=== PATIENT | female | born 1970 | race Caucasian/White ===

== ENCOUNTER 2017-02-26 17:20 | Inpatient (IN) | payer BC ==
[~2017-02-26] VITALS: Ht 160 cm; Wt 83.2 kg
[~2017-02-26 17:20] MED LIST: ALBU0.63 NEB; ALBU18HF INH; ALLO100T30 PO; ALPR0.5T10 PO; AMLO1TAB13 PO; AMOX1TAB64 PO; ASPI-496 PO; CARV3.1212 PO; DOXY100C15 PO; ESOM40CA PO; FLUC200T4 PO; LEVO750T26 PO; MELO-184 PO; METR500T PO; ONDA4TAB7 PO; POTA10TA PO; RIVA1PAT23 TD; SIMV5TAB5 PO; SUMA100T3 PO; TRAM50TA2 PO
[2017-02-26] MEDS ORDERED: FLUO20CA8 PO (17:48)
[2017-02-26] MEDS ORDERED: ALPR1TAB6 PO (17:48)
[2017-02-26] MEDS ORDERED: ESOM40CA PO (17:48)
[2017-02-26] MEDS ORDERED: TOPI25TA32 PO (17:48)
[2017-02-26] MEDS ORDERED: MONT10TA6 PO (17:50)
[2017-02-26] MEDS ORDERED: FLUT1DIS3 INH (17:50)
[2017-02-26] MEDS ORDERED: SODIUM CHLORIDE FLUSH 10ML SYR IVF ONE (18:30)
[2017-02-26] MEDS ORDERED: DIPHENHYDRAMINE 50 MG/ML, 1ML ONE (18:48)
[2017-02-26] MEDS ORDERED: METOCLOPRAMIDE 5 MG/ML, 2ML ONE (18:48)
[2017-02-26 18:52] LABS: BLOOD UREA NITROGEN 12 mg/dL (7-18)
[2017-02-26 18:55] LABS: ASPARTATE AMINO TRANSFERASE 19 U/L (15-37)
[2017-02-26] MEDS ORDERED: METOCLOPRAMIDE 5 MG/ML, 2ML IVPush ONE (19:00)
[2017-02-26] MEDS ORDERED: DIPHENHYDRAMINE 50 MG/ML, 1ML IVPush ONE (19:00)
[2017-02-26] MEDS ORDERED: SODIUM CHLORIDE FLUSH 10ML SYR IVF PRN (20:30)
[2017-02-26] MEDS ORDERED: TOPIRAMATE 25 MG TABLET PO SCH (21:00)
[2017-02-26] MEDS ORDERED: MONTELUKAST 10 MG TABLET PO SCH (21:00)
[2017-02-26] MEDS ORDERED: ONDANSETRON ODT 4 MG PO PRN (21:00)
[2017-02-26] MEDS ORDERED: ACETAMINOPHEN 325 MG TABLET PO PRN (21:00)
[2017-02-26 21:18] LABS: IS PT STATUS REG ER OR PRE ER? YES
[2017-02-26] MEDS: ALBUTEROL SULFATE 2.5 MG/3 ML NPPB SCH (21:30)
[2017-02-26] MEDS ORDERED: SUMATRIPTAN 50 MG TABLET PO ONE (22:30)
[2017-02-26] MEDS ORDERED: SUMATRIPTAN 50 MG TABLET PO PRN (22:31)
[2017-02-26] MEDS: FLUTICASONE/VILANTEROL 100-25MCG/INH INH SCH (23:00)
[2017-02-27] MEDS: ALPRazolam 1MG TABLET PO SCH ×3 (00:15→20:47)
[2017-02-27] MEDS: ENOXAPARIN 40 MG/0.4 ML SQ SCH ×2 (00:15→20:47)
[2017-02-27] MEDS: ALBUTEROL SULFATE 2.5 MG/3 ML NPPB SCH (01:30)
[2017-02-27 02:00] VITALS: BP 132/78
[2017-02-27 03:02] LABS: BLOOD UREA NITROGEN 10 mg/dL (7-18)
[2017-02-27 03:15] LABS: IS PT STATUS REG ER OR PRE ER? NO
[2017-02-27] MEDS: KETOROLAC 30 MG/1 ML IVPush PRN ×3 (04:13→20:47)
[2017-02-27 07:23] VITALS: BP 93/65
[2017-02-27] MEDS: FLUTICASONE/VILANTEROL 100-25MCG/INH INH SCH (08:20)
[2017-02-27] MEDS: PANTOPROZOLE 40MG TABLET PO SCH (08:21)
[2017-02-27] MEDS ORDERED: FLUOXETINE 20 MG CAPSULE PO SCH (09:00)
[2017-02-27] MEDS: FENOFIBRATE 145 MG TABLET PO SCH (13:40)
[2017-02-27 13:45] VITALS: BP 107/71
[2017-02-27] MEDS ORDERED: GADOBUTROL 10 MMOL/10 ML PFS ONE (14:48)
[2017-02-27] MEDS: ATORVASTATIN 40 MG TABLET PO SCH (20:47)
[2017-02-27] MEDS: MONTELUKAST 10 MG TABLET HOMEMEDPO SCH (20:48)
[2017-02-27 20:51] VITALS: BP 99/70
[2017-02-27] MEDS ORDERED: ALBUTEROL SULFATE 2.5 MG/3 ML NPPB PRN (21:30)
[2017-02-28 02:19] VITALS: BP 101/66
[2017-02-28 05:28] LABS: BLOOD UREA NITROGEN 9 mg/dL (7-18)
[2017-02-28 07:35] VITALS: BP 101/66
[2017-02-28] MEDS: PANTOPROZOLE 40MG TABLET PO SCH (08:00)
[2017-02-28] MEDS: KETOROLAC 30 MG/1 ML IVPush PRN ×2 (08:01→20:39)
[2017-02-28] MEDS: FLUTICASONE/VILANTEROL 100-25MCG/INH INH SCH (08:01)
[2017-02-28] MEDS: ALPRazolam 1MG TABLET PO SCH ×2 (08:02→20:39)
[2017-02-28] MEDS: FENOFIBRATE 145 MG TABLET PO SCH (08:02)
[2017-02-28] MEDS: FLUOXETINE 20 MG CAPSULE PO SCH (08:02)
[2017-02-28 12:31] VITALS: BP 102/67
[2017-02-28 19:02] VITALS: BP 112/66
[2017-02-28] MEDS: MONTELUKAST 10 MG TABLET HOMEMEDPO SCH (20:38)
[2017-02-28] MEDS: ATORVASTATIN 40 MG TABLET PO SCH (20:40)
[2017-02-28] MEDS: ENOXAPARIN 40 MG/0.4 ML SQ SCH (20:40)
[2017-03-01] VITALS: BP 100/70
[2017-03-01 01:33] VITALS: BP 97/64
[2017-03-01 04:00] VITALS: BP 97/63
[2017-03-01] MEDS ORDERED: PNEUMOCOCCAL 23 VACCINE IM-VACC ONE (04:30)
[2017-03-01 07:00] VITALS: BP 99/65
[2017-03-01] MEDS: KETOROLAC 30 MG/1 ML IVPush PRN (08:36)
[2017-03-01] MEDS: FLUTICASONE/VILANTEROL 100-25MCG/INH INH SCH (08:36)
[2017-03-01] MEDS: FENOFIBRATE 145 MG TABLET PO SCH (08:36)
[2017-03-01] MEDS: PANTOPROZOLE 40MG TABLET PO SCH (08:36)
[2017-03-01] MEDS: FLUOXETINE 20 MG CAPSULE PO SCH (08:36)
[2017-03-01] MEDS: ALPRazolam 1MG TABLET PO SCH (08:37)
[2017-03-01] MEDS ORDERED: FENO145T13 PO (09:12)
[2017-03-01] MEDS ORDERED: FLUO20CA8 PO (09:12)
== END 2017-03-01 11:55 | disposition home or self-care (01) | DRG 92 ==
LOC: ED 20:35 → EDIP 20:50 → 4EST 22:00
PROVIDERS: ADMIT Internal Medicine; ATTEND Internal Medicine
DX: R20.0 Anesthesia of skin (principal); E87.1 Hypo-osmolality and hyponatremia; R47.81 Slurred speech; H53.8 Other visual disturbances; E78.1 Pure hyperglyceridemia; F32.9 Major depressive disorder, single episode, unspecified; G43.909 Migraine, unspecified, not intractable, without status migrainosus; K21.9 Gastro-esophageal reflux disease without esophagitis; K22.70 Barrett's esophagus without dysplasia; J45.909 Unspecified asthma, uncomplicated; F41.9 Anxiety disorder, unspecified; F43.10 Post-traumatic stress disorder, unspecified; Z86.14 Personal history of Methicillin resistant Staphylococcus aureus infection; Z98.1 Arthrodesis status; Z90.710 Acquired absence of both cervix and uterus; Z90.49 Acquired absence of other specified parts of digestive tract; Z88.5 Allergy status to narcotic agent; Z88.8 Allergy status to other drugs, medicaments and biological substances
CPT/HCPCS: 36415; 70450; 70544; 70549; 70553; 80048; 80053; 80061; 83735; 84484; 85025; 85610; 85730; 87324; 90732; 93005; 96374; 96375; A9585; J1650; J1885; J1200; J2765

== ENCOUNTER 2017-07-11 09:31 | Emergency (ER) | payer BC ==
[~2017-07-11] VITALS: Ht 160 cm; Wt 75.8 kg
[~2017-07-11 09:31] MED LIST changes: +ALPR1TAB6 PO; +FENO145T13 PO; +FLUO20CA8 PO; +FLUT1DIS3 INH; -MELO-184 PO; +MELO15TA24 PO; +MONT10TA6 PO; +TOPI25TA32 PO
[2017-07-11 10:15] LABS: HEMATOCRIT 44.6 % (34.6-47.8); HEMOGLOBIN 15.1 g/dL (11.7-16.4); WHITE BLOOD COUNT 8.4 x10^3/uL (3.4-10)
[2017-07-11 10:26] LABS: BLOOD UREA NITROGEN 10 mg/dL (7-18)
[2017-07-11 10:30] LABS: ASPARTATE AMINO TRANSFERASE 11 U/L (15-37)
[2017-07-11 10:46] LABS: HCG UR OBC PASS
[2017-07-11] MEDS ORDERED: SODIUM CHLORIDE FLUSH 10ML SYR IVF ONE (11:30)
[2017-07-11] MEDS ORDERED: ONDANSETRON 2MG/ML, 2ML IVPush ONE (11:30)
[2017-07-11] MEDS ORDERED: ONDANSETRON 2MG/ML, 2ML ONE (11:31)
[2017-07-11] MEDS ORDERED: OMNIPAQUE 350 MG/ML, 100ML BOTTLE ONE (12:30)
[2017-07-11 13:03] VITALS: BP 114/73
== END 2017-07-11 13:07 | disposition home or self-care (01) ==
LOC: ED 10:06
DX: S39.012A Strain of muscle, fascia and tendon of lower back, initial encounter (principal); R10.33 Periumbilical pain; R10.31 Right lower quadrant pain; G89.29 Other chronic pain; F43.10 Post-traumatic stress disorder, unspecified; X58.XXXA Exposure to other specified factors, initial encounter; Y93.89 Activity, other specified; Y92.89 Other specified places as the place of occurrence of the external cause; Y99.8 Other external cause status
CPT/HCPCS: 36415; 74177; 80053; 81003; 81025; 83690; 85025; 96374; 99285; J2405; Q9967

== ENCOUNTER 2017-10-08 15:58 | Emergency (ER) | payer BC ==
[~2017-10-08] VITALS: Ht 160 cm; Wt 76.2 kg
[2017-10-08] MEDS ORDERED: ALPR0.5T6 PO (16:47)
[2017-10-08] MEDS ORDERED: NORT10CA PO (16:47)
[2017-10-08] MEDS ORDERED: BUSP10TA PO (16:47)
[2017-10-08] MEDS ORDERED: PANT40TA5 PO (16:47)
[2017-10-08] MEDS ORDERED: FENO145T13 PO (16:47)
[2017-10-08] MEDS ORDERED: MONT10TA9 PO (16:47)
[2017-10-08] MEDS ORDERED: SODIUM CHLORIDE 0.9% 1,000 ML IV ONE (16:57)
[2017-10-08] MEDS ORDERED: methylPREDNISolone SOD SUCC 125 MG/2 ML IVP ONE (17:00)
[2017-10-08] MEDS ORDERED: SODIUM CHLORIDE FLUSH 10ML SYR IVF ONE (17:00)
[2017-10-08] MEDS ORDERED: SODIUM CHLORIDE 0.9% 1,000ML IVBOLUS ONE (17:00)
[2017-10-08] MEDS ORDERED: methylPREDNISolone SOD SUCC 125 MG/2 ML ONE (17:17)
[2017-10-08 17:18] VITALS: BP 133/89
[2017-10-08 17:30] LABS: RAPID INFLUENZA A POSITIVE (Negative); RAPID INFLUENZA B Negative (Negative)
[2017-10-08 17:33] LABS: HEMATOCRIT 41.8 % (34.6-47.8); WHITE BLOOD COUNT 5.3 x10^3/uL (3.4-10)
[2017-10-08 17:41] LABS: ASPARTATE AMINO TRANSFERASE 15 U/L (15-37); BLOOD UREA NITROGEN 7 mg/dL (7-18)
== END 2017-10-08 18:26 | disposition home or self-care (01) ==
LOC: ED 18:00
DX: J09.X2 Influenza due to identified novel influenza A virus with other respiratory manifestations (principal); F43.10 Post-traumatic stress disorder, unspecified; K22.2 Esophageal obstruction; G56.00 Carpal tunnel syndrome, unspecified upper limb; Z90.49 Acquired absence of other specified parts of digestive tract; Z86.73 Personal history of transient ischemic attack (TIA), and cerebral infarction without residual deficits
CPT/HCPCS: 36415; 71010; 80053; 83880; 85025; 87400; 93005; 96361; 96374; 99285; J2930; J7030

== ENCOUNTER → 2017-10-10 | Outpatient (CLI) | payer BC ==
[~2017-10-10] MED LIST changes: +ALPR0.5T6 PO; +BUSP10TA PO; +GADOBUTROL 7.5 MMOL/7.5 ML PFS ONE; +MONT10TA9 PO; +NORT10CA PO; +PANT40TA5 PO
== END | disposition home or self-care (01) ==
LOC: CFH 15:36
PROVIDERS: ATTEND Nurse Practitioner Family
DX: M50.11 Cervical disc disorder with radiculopathy, high cervical region (principal)
CPT/HCPCS: 72050; 72156; A9585

== ENCOUNTER → 2018-01-04 | Outpatient (CLI) | payer BC ==
[~2018-01-04] MED LIST changes: -GADOBUTROL 7.5 MMOL/7.5 ML PFS ONE
== END | disposition home or self-care (01) ==
LOC: CFH 15:42
PROVIDERS: ATTEND Registered Nurse
DX: M51.34 Other intervertebral disc degeneration, thoracic region (principal); M79.604 Pain in right leg; M79.601 Pain in right arm; M79.602 Pain in left arm; M79.605 Pain in left leg
CPT/HCPCS: 72146

== ENCOUNTER 2018-01-09 10:17 | Inpatient (IN) | payer BC ==
[~2018-01-09] VITALS: Ht 160 cm; Wt 79.5 kg
[2018-01-09] MEDS ORDERED: ONDANSETRON 2MG/ML, 2ML ONE (11:52)
[2018-01-09] MEDS ORDERED: MORPHINE SULFATE 4 MG/ML, 1ML ONE ×2 (11:53→12:26)
[2018-01-09] MEDS: MORPHINE SULFATE 4 MG/ML, 1ML IVPush PRN ×2 (11:56→12:28)
[2018-01-09] MEDS ORDERED: ONDANSETRON 2MG/ML, 2ML IVPush ONE (12:00)
[2018-01-09] MEDS ORDERED: SODIUM CHLORIDE FLUSH 10ML SYR IVF ONE (12:00)
[2018-01-09 12:02] LABS: BASOPHILS # (AUTO) 0.05 x10^3/uL (0-0.1); BASOPHILS % (AUTO) 1 % (0-1); EOSINOPHILS # (AUTO) 0.05 x10^3/uL (0-0.4); EOSINOPHILS % (AUTO) 1 % (1-7); LYMPHOCYTES # (AUTO) 2.44 x10^3/uL (1-3.4); LYMPHOCYTES % (AUTO) 40 % (22-44); MD NO; MEAN CORPUSCULAR HEMOGLOBIN 31.2 pg (27.0-34.8); MEAN CORPUSCULAR HGB CONC 33.5 g/dL (32.4-35.8); MEAN CORPUSCULAR VOLUME 92.9 fL (80-100); MEAN PLATELET VOLUME 7.9 fL (7.4-10.4); MONOCYTES # (AUTO) 0.39 x10^3/uL (0.2-0.8); MONOCYTES % (AUTO) 6 % (2-9); NEUTROPHILS # (AUTO) 3.16 x10^3/uL (1.8-6.8); NEUTROPHILS % (AUTO) 52 % (42-75); PLATELET COUNT 452 x10^3/uL (130-400); RED BLOOD COUNT 4.72 x10^6/uL (3.82-5.3); RED CELL DISTRIBUTION WIDTH 13.4 % (9.6-15.2)
[2018-01-09] MEDS ORDERED: ONDA4TAB13 SL (12:11)
[2018-01-09] MEDS ORDERED: SUMA100T4 PO (12:11)
[2018-01-09 12:13] LABS: ALANINE AMINOTRANSFERASE 28 U/L (12-78); ALBUMIN 4.3 g/dL (3.4-5.0); ANION GAP 7 mmol/L (5-15); CALCIUM 8.8 mg/dL (8.5-10.1); CHLORIDE 106 mmol/L (98-107)
[2018-01-09 12:18] LABS: ALKALINE PHOSPHATASE 76 U/L (45-117); BILIRUBIN,TOTAL 0.3 mg/dL (0.2-1.0); CREATININE 0.76 mg/dL (0.55-1.02); TOTAL PROTEIN 8.2 g/dL (6.4-8.2); TROPONIN I < 0.015 ng/mL (0.000-0.045)
[2018-01-09] MEDS ORDERED: KETOROLAC 30 MG/1 ML IVPush ONE (15:00)
[2018-01-09] MEDS: BUSPIRONE 10 MG TABLET PO SCH ×2 (16:00→22:22)
[2018-01-09] MEDS ORDERED: ALBUTEROL SULFATE 2.5 MG/3 ML NPPB SCH (16:00)
[2018-01-09] MEDS ORDERED: SUMATRIPTAN 50 MG TABLET PO PRN (17:00)
[2018-01-09 18:13] VITALS: BP 116/83
[2018-01-09 18:58] VITALS: BP 119/81
[2018-01-09] MEDS ORDERED: FENOFIBRATE 145 MG TABLET PO SCH (21:00)
[2018-01-09] MEDS ORDERED: PANTOPROZOLE 40MG TABLET PO SCH (21:00)
[2018-01-09] MEDS ORDERED: NORTRIPTYLINE 10 MG CAPSULE PO SCH (21:00)
[2018-01-09] MEDS ORDERED: ONDANSETRON 2MG/ML, 2ML IVPush PRN (23:00)
[2018-01-09] MEDS ORDERED: DIPHENHYDRAMINE 50 MG/ML, 1ML IVPush ONE (23:00)
[2018-01-09] MEDS ORDERED: METOCLOPRAMIDE 5 MG/ML, 2ML IVPush ONE (23:00)
[2018-01-09] MEDS ORDERED: KETOROLAC 30 MG/1 ML IVPush SCH (23:30)
[2018-01-10 00:21] VITALS: BP 123/84
[2018-01-10 01:20] VITALS: BP 130/90
[2018-01-10] MEDS ORDERED: MORPHINE SULFATE 4 MG/ML, 1ML IVPush PRN (02:30)
[2018-01-10 02:48] VITALS: BP 134/89
[2018-01-10] MEDS ORDERED: ACETAMINOPHEN 500 MG TABLET PO PRN (06:30)
[2018-01-10] MEDS ORDERED: ONDANSETRON 2MG/ML, 2ML IVPush PRN (06:30)
[2018-01-10 07:22] VITALS: BP 134/91
[2018-01-10] MEDS ORDERED: FLUTICASONE/VILANTEROL 100-25MCG/INH INH SCH (09:00)
[2018-01-10] MEDS ORDERED: TOPIRAMATE 100 MG TABLET PO ONE (09:00)
[2018-01-10] MEDS: BUSPIRONE 10 MG TABLET PO SCH (09:50)
== END 2018-01-10 13:04 | disposition home or self-care (01) | DRG 69 ==
LOC: ED 14:10 → EDIP 14:12 → 4WST 15:37
PROVIDERS: ADMIT Internal Medicine; ATTEND Internal Medicine
DX: G45.9 Transient cerebral ischemic attack, unspecified (principal); I67.1 Cerebral aneurysm, nonruptured; F10.10 Alcohol abuse, uncomplicated; G43.109 Migraine with aura, not intractable, without status migrainosus; F32.9 Major depressive disorder, single episode, unspecified; F43.10 Post-traumatic stress disorder, unspecified; K21.9 Gastro-esophageal reflux disease without esophagitis; K22.70 Barrett's esophagus without dysplasia; K58.9 Irritable bowel syndrome, unspecified; Z86.14 Personal history of Methicillin resistant Staphylococcus aureus infection; Z86.73 Personal history of transient ischemic attack (TIA), and cerebral infarction without residual deficits; Z98.1 Arthrodesis status; Z90.710 Acquired absence of both cervix and uterus; Z90.49 Acquired absence of other specified parts of digestive tract; Z88.5 Allergy status to narcotic agent; Z88.8 Allergy status to other drugs, medicaments and biological substances
CPT/HCPCS: 36415; 70450; 70544; 70551; 71045; 80053; 83880; 84484; 85025; 93005; 96374; 96375; 96376; J1885; J2405; 92523-GN

== ENCOUNTER 2018-03-28 15:49 | Observation (INO) | payer BC ==
[~2018-03-28] VITALS: Ht 160 cm; Wt 74.0 kg
[~2018-03-28 15:49] MED LIST changes: +DEXAMETHASONE 4 MG/ML, 1ML ONE; -FENO145T13 PO; +FENO145T30 PO; +ONDA4TAB13 SL; +ROCURONIUM 10 MG/ML,10ML ONE; +SUMA100T4 PO
[2018-03-28] MEDS ORDERED: PROMETHAZINE 25 MG/ML, 1ML IM ONE (16:30)
[2018-03-28] MEDS ORDERED: SODIUM CHLORIDE 0.9% 1,000ML IVBOLUS ONE (16:30)
[2018-03-28] MEDS ORDERED: SODIUM CHLORIDE FLUSH 10ML SYR IVF ONE (16:30)
[2018-03-28] MEDS ORDERED: morphine SULFATE 10 MG/ML, 1ML IVPush ONE (16:30)
[2018-03-28] MEDS ORDERED: VENL75CA PO (16:32)
[2018-03-28 16:41] LABS: BASOPHILS # (AUTO) 0.05 x10^3/uL (0-0.1); BASOPHILS % (AUTO) 0 % (0-1); EOSINOPHILS # (AUTO) 0.04 x10^3/uL (0-0.4); EOSINOPHILS % (AUTO) 0 % (1-7); LYMPHOCYTES # (AUTO) 1.86 x10^3/uL (1-3.4); LYMPHOCYTES % (AUTO) 13 % (22-44); MD NO; MEAN CORPUSCULAR HEMOGLOBIN 31.2 pg (27.0-34.8); MEAN CORPUSCULAR HGB CONC 33.5 g/dL (32.4-35.8); MEAN CORPUSCULAR VOLUME 93.1 fL (80-100); MEAN PLATELET VOLUME 7.9 fL (7.4-10.4); MONOCYTES # (AUTO) 0.77 x10^3/uL (0.2-0.8); MONOCYTES % (AUTO) 5 % (2-9); NEUTROPHILS # (AUTO) 11.53 x10^3/uL (1.8-6.8); NEUTROPHILS % (AUTO) 81 % (42-75); PLATELET COUNT 387 x10^3/uL (130-400); RED BLOOD COUNT 4.86 x10^6/uL (3.82-5.3); RED CELL DISTRIBUTION WIDTH 13.1 % (9.6-15.2)
[2018-03-28 16:46] LABS: ALANINE AMINOTRANSFERASE 24 U/L (12-78); ALBUMIN 4.2 g/dL (3.4-5.0); ANION GAP 10 mmol/L (5-15); CALCIUM 8.9 mg/dL (8.5-10.1); CHLORIDE 105 mmol/L (98-107)
[2018-03-28] MEDS ORDERED: PROMETHAZINE 25 MG/ML, 1ML ONE (16:46)
[2018-03-28] MEDS ORDERED: MORPHINE SULFATE 4 MG/ML, 1ML ONE (16:46)
[2018-03-28 16:49] LABS: ALKALINE PHOSPHATASE 79 U/L (45-117); BILIRUBIN,TOTAL 0.7 mg/dL (0.2-1.0); CREATININE 0.75 mg/dL (0.55-1.02); TOTAL PROTEIN 8.4 g/dL (6.4-8.2)
[2018-03-28] MEDS ORDERED: OMNIPAQUE 350 MG/ML, 100ML BOTTLE ONE (18:11)
[2018-03-28] MEDS ORDERED: CEFTRIAXONE PMX 1GM/50ML 50 ML ONE (18:44)
[2018-03-28] MEDS ORDERED: CEFOTETAN PMX 1GM/50ML 50 ML IV ONE (19:00)
[2018-03-28 19:03] LABS: MICROSCOPIC NOT IND
[2018-03-28] MEDS ORDERED: FENTANYL PF 100 MCG/2ML ONE ×2 (19:04→19:49)
[2018-03-28] MEDS ORDERED: SUCCINYLCHOLINE 20 MG/ML, 10ML ONE (19:05)
[2018-03-28 19:14] LABS: CULTURE INDICATED? NO
[2018-03-28] MEDS ORDERED: MIDAZOLAM 1 MG/ML, 2ML ONE (19:17)
[2018-03-28] MEDS ORDERED: BUPIVACAINE/PF 0.25% ONE (19:19)
[2018-03-28] MEDS ORDERED: EPINEPHRINE 1 MG/ML, 1ML ONE (19:19)
[2018-03-28] MEDS ORDERED: hydrALAzine 20 MG/ML, 1ML IV PRN ×2 (19:30→20:30)
[2018-03-28] MEDS ORDERED: LABETALOL 5MG/ML, 20ML IV PRN (19:30)
[2018-03-28] MEDS ORDERED: FENTANYL PF 100 MCG/2ML IV PRN (19:30)
[2018-03-28] MEDS ORDERED: MEPERIDINE/PF 25MG/0.5ML IVPush PRN (19:30)
[2018-03-28] MEDS ORDERED: ONDANSETRON ODT 8 MG PO PRN (19:30)
[2018-03-28] MEDS ORDERED: PROMETHAZINE 12.5 MG SUPP PR PRN (19:30)
[2018-03-28] MEDS ORDERED: ACETAMINOPHEN 325 MG TABLET PO PRN (19:30)
[2018-03-28] MEDS ORDERED: MORPHINE SULFATE 4 MG/ML, 1ML IVPush PRN ×2 (19:30→20:30)
[2018-03-28] MEDS ORDERED: ONDANSETRON 2MG/ML, 2ML ONE ×2 (19:46→19:52)
[2018-03-28] MEDS ORDERED: PROPOFOL 10 MG/ML, 20ML ONE (20:03)
[2018-03-28] MEDS: HYDROmorphone 1 MG/ML, 1ML IV PRN ×3 (20:12→20:39)
[2018-03-28] MEDS ORDERED: HYDROmorphone 2 MG/ML, 1ML ONE (20:19)
[2018-03-28] MEDS ORDERED: ONDANSETRON 2MG/ML, 2ML IVPush PRN (20:30)
[2018-03-28] MEDS ORDERED: LORazepam 2 MG/ML, 1ML IV PRN (20:30)
[2018-03-28] MEDS ORDERED: DIPHENHYDRAMINE 50 MG/ML, 1ML IV PRN (20:30)
[2018-03-28] MEDS: KETOROLAC 30 MG/1 ML IV PRN (21:44)
[2018-03-28] MEDS ORDERED: NORTRIPTYLINE 25 MG CAPSULE PO SCH (23:00)
[2018-03-28] MEDS: ACETAMINOPHEN 650 MG/20.3 ML UDC PO PRN (23:49)
[2018-03-28] MEDS: POTASSIUM CHLORIDE 20 MEQ in LACTATED RINGERS 1,000 ML IV SCH (23:49)
[2018-03-28] MEDS: OXYcodone IR 5MG TABLET PO PRN (23:50)
[2018-03-28] MEDS: SODIUM CHLORIDE FLUSH 10ML SYR IVF SCH (23:54)
[2018-03-29 02:04] VITALS: BP 98/58
[2018-03-29] MEDS: OXYcodone IR 5MG TABLET PO PRN ×2 (03:56→08:23)
[2018-03-29] MEDS: KETOROLAC 30 MG/1 ML IV PRN (03:56)
[2018-03-29] MEDS: ACETAMINOPHEN 650 MG/20.3 ML UDC PO PRN (03:56)
[2018-03-29 06:46] VITALS: BP 95/60
[2018-03-29] MEDS: POTASSIUM CHLORIDE 20 MEQ in LACTATED RINGERS 1,000 ML IV SCH (08:25)
[2018-03-29] MEDS: SODIUM CHLORIDE FLUSH 10ML SYR IVF SCH (08:26)
[2018-03-29] MEDS ORDERED: VENLAFAXINE 75 MG CAP ER PO SCH (09:00)
== END 2018-03-29 10:40 | disposition home or self-care (01) ==
LOC: ED 18:55 → INTOOBSV 19:05 → EDIP 19:05 → 4NOR 21:27
PROVIDERS: ADMIT Thoracic Surgery (Cardiothoracic Vascular Surgery); ATTEND Thoracic Surgery (Cardiothoracic Vascular Surgery)
DX: K35.80 Unspecified acute appendicitis (principal); K58.9 Irritable bowel syndrome, unspecified; K21.9 Gastro-esophageal reflux disease without esophagitis; K22.70 Barrett's esophagus without dysplasia; F43.10 Post-traumatic stress disorder, unspecified; Z86.73 Personal history of transient ischemic attack (TIA), and cerebral infarction without residual deficits; Z87.11 Personal history of peptic ulcer disease
CPT/HCPCS: 36415; 44970; 74018; 74177; 80053; 81003; 83690; 85025; 88304; 96365; 96372; 96375; 99285; G0378; J0171; J0330; J1100; J1170; J1885; J2060; J2250; J2270; J2405; J2550; J2704; J3010; J3480; J3490; J7030; J7120; Q9967; S0074

== ENCOUNTER 2018-07-19 12:02 | Emergency (ER) | payer BC ==
[~2018-07-19] VITALS: Ht 160 cm; Wt 76.2 kg
[~2018-07-19 12:02] MED LIST changes: -DEXAMETHASONE 4 MG/ML, 1ML ONE; -ROCURONIUM 10 MG/ML,10ML ONE; +VENL75CA PO
[2018-07-19 13:07] LABS: BASOPHILS # (AUTO) 0.04 x10^3/uL (0-0.1); BASOPHILS % (AUTO) 1 % (0-1); EOSINOPHILS # (AUTO) 0.04 x10^3/uL (0-0.4); EOSINOPHILS % (AUTO) 1 % (1-7); LYMPHOCYTES # (AUTO) 2.48 x10^3/uL (1-3.4); LYMPHOCYTES % (AUTO) 33 % (22-44); MD NO; MEAN CORPUSCULAR HEMOGLOBIN 30.8 pg (27.0-34.8); MEAN CORPUSCULAR HGB CONC 33.5 g/dL (32.4-35.8); MEAN CORPUSCULAR VOLUME 91.9 fL (80-100); MEAN PLATELET VOLUME 7.6 fL (7.4-10.4); MONOCYTES # (AUTO) 0.44 x10^3/uL (0.2-0.8); MONOCYTES % (AUTO) 6 % (2-9); NEUTROPHILS # (AUTO) 4.47 x10^3/uL (1.8-6.8); NEUTROPHILS % (AUTO) 60 % (42-75); PLATELET COUNT 425 x10^3/uL (130-400); RED BLOOD COUNT 4.69 x10^6/uL (3.82-5.3); RED CELL DISTRIBUTION WIDTH 12.4 % (9.6-15.2)
[2018-07-19 13:14] LABS: ALBUMIN 4.1 g/dL (3.4-5.0); ANION GAP 10 mmol/L (5-15); CALCIUM 9.1 mg/dL (8.5-10.1); CHLORIDE 105 mmol/L (98-107); CREATININE 0.56 mg/dL (0.55-1.02)
[2018-07-19 14:05] LABS: MICROSCOPIC NOT IND
[2018-07-19 14:31] LABS: CULTURE INDICATED? NO
[2018-07-19 16:41] VITALS: BP 130/90
== END 2018-07-19 16:44 | disposition home or self-care (01) ==
LOC: ED 15:15
DX: R10.32 Left lower quadrant pain (principal); R10.2 Pelvic and perineal pain; F43.10 Post-traumatic stress disorder, unspecified
CPT/HCPCS: 36415; 74176; 76830; 80048; 81003; 82040; 85025; 99285

== ENCOUNTER 2018-09-20 19:22 | Emergency (ER) | payer BC ==
[~2018-09-20] VITALS: Ht 160 cm; Wt 79.0 kg
[2018-09-20] MEDS ORDERED: PROCHLORPERAZINE 5 MG/ML, 2ML IVPush ONE (21:00)
[2018-09-20] MEDS ORDERED: SODIUM CHLORIDE 0.9% 1,000ML IVBOLUS ONE (21:00)
[2018-09-20] MEDS ORDERED: DIPHENHYDRAMINE 50 MG/ML, 1ML IVPush ONE (21:00)
[2018-09-20] MEDS ORDERED: SODIUM CHLORIDE FLUSH 10ML SYR IVF ONE (21:00)
[2018-09-20] MEDS ORDERED: KETOROLAC 30 MG/1 ML IVPush ONE (21:00)
[2018-09-20] MEDS ORDERED: PROCHLORPERAZINE 5 MG/ML, 2ML ONE (21:04)
[2018-09-20] MEDS ORDERED: DIPHENHYDRAMINE 50 MG/ML, 1ML ONE (21:04)
[2018-09-20] MEDS ORDERED: KETOROLAC 30 MG/1 ML ONE (21:04)
[2018-09-20 22:20] VITALS: BP 114/55
== END 2018-09-20 22:38 | disposition home or self-care (01) ==
LOC: ED 19:40
DX: G43.119 Migraine with aura, intractable, without status migrainosus (principal); F12.10 Cannabis abuse, uncomplicated; F43.10 Post-traumatic stress disorder, unspecified; Z86.73 Personal history of transient ischemic attack (TIA), and cerebral infarction without residual deficits; Z87.11 Personal history of peptic ulcer disease; Z87.19 Personal history of other diseases of the digestive system; Z87.01 Personal history of pneumonia (recurrent)
CPT/HCPCS: 70450; 96361; 96374; 96375; 99284; J0780; J1200; J1885; J7030

== ENCOUNTER 2018-12-20 12:15 | Emergency (ER) | payer BC ==
[~2018-12-20] VITALS: Ht 160 cm; Wt 82.0 kg
[~2018-12-20 12:15] MED LIST changes: +SIMV5TAB14 PO; -SIMV5TAB5 PO
--- NOTE | 2018-12-20 13:57 | NUR ---
TO ROOM FROM LOBBY. NAD.
[2018-12-20 14:11] LABS: BASOPHILS # (AUTO) 0.03 x10^3/uL (0-0.1); BASOPHILS % (AUTO) 0 % (0-1); EOSINOPHILS # (AUTO) 0.07 x10^3/uL (0-0.4); EOSINOPHILS % (AUTO) 1 % (1-7); LYMPHOCYTES # (AUTO) 2.72 x10^3/uL (1-3.4); LYMPHOCYTES % (AUTO) 31 % (22-44); MD NO; MEAN CORPUSCULAR HEMOGLOBIN 30.3 pg (27.0-34.8); MEAN CORPUSCULAR HGB CONC 33.8 g/dL (32.4-35.8); MEAN CORPUSCULAR VOLUME 89.8 fL (80-100); MEAN PLATELET VOLUME 7.7 fL (7.4-10.4); MONOCYTES # (AUTO) 0.57 x10^3/uL (0.2-0.8); MONOCYTES % (AUTO) 6 % (2-9); NEUTROPHILS # (AUTO) 5.45 x10^3/uL (1.8-6.8); NEUTROPHILS % (AUTO) 62 % (42-75); PLATELET COUNT 413 x10^3/uL (130-400); RED BLOOD COUNT 5.06 x10^6/uL (3.82-5.3)
[2018-12-20 14:19] LABS: ALBUMIN 4.2 g/dL (3.4-5.0); ANION GAP 7 mmol/L (5-15); CALCIUM 9.8 mg/dL (8.5-10.1); CHLORIDE 103 mmol/L (98-107)
[2018-12-20 14:20] LABS: CREATININE 0.79 mg/dL (0.55-1.02)
[2018-12-20] MEDS ORDERED: PROCHLORPERAZINE 5 MG/ML, 2ML ONE (14:43)
[2018-12-20] MEDS ORDERED: DIPHENHYDRAMINE 50 MG/ML, 1ML ONE (14:43)
[2018-12-20] MEDS ORDERED: KETOROLAC 30 MG/1 ML ONE (14:43)
[2018-12-20] MEDS ORDERED: HYDR25TA6 PO (15:00)
[2018-12-20] MEDS ORDERED: SODIUM CHLORIDE FLUSH 10ML SYR IVF ONE (15:00)
[2018-12-20] MEDS ORDERED: PROCHLORPERAZINE 5 MG/ML, 2ML IVPush ONE (15:00)
[2018-12-20] MEDS ORDERED: DIPHENHYDRAMINE 50 MG/ML, 1ML IVPush ONE (15:00)
[2018-12-20] MEDS ORDERED: KETOROLAC 30 MG/1 ML IVPush ONE (15:00)
[2018-12-20] MEDS ORDERED: METO10TA82 PO (15:00)
[2018-12-20] MEDS ORDERED: HYDR50TA13 PO (15:00)
--- NOTE | 2018-12-20 15:12 | NUR ---
TASK RN: PT RESTING IN [facility], AWAKE/ALERT. NO GROSS NEURO DEFICITE NOTED. BP/SPO2/ECG MONITORING IN PLACE. SINUS TACH ON MONITOR.
[2018-12-20 15:27] VITALS: BP 147/88
--- NOTE | 2018-12-20 15:27 | NUR ---
TASK RN: PT REPORTS IMPROVEMENT IN PAIN WITH MEDICATIONS, 01/31. IMPROVEMENT IN BP NOTED. ERP AWARE
--- NOTE | 2018-12-20 15:33 | NUR ---
TASK RN: POC IS DC. PT OFF MONITORING, IV DC'D. PT UP TO DRESS SELF.
--- NOTE | 2018-12-20 15:39 | NUR ---
TASK RN: DC EDUCATION PROVIDED, PT DEMONSTRATES UNDERSTANDING. PT AMBULATED STEADILY TO DC WITH RN. SO IN LOBBY TO TRANSPORT PT HOME
== END 2018-12-20 15:41 | disposition home or self-care (01) ==
LOC: ED 14:15
DX: G43.019 Migraine without aura, intractable, without status migrainosus (principal); I10 Essential (primary) hypertension; Z86.73 Personal history of transient ischemic attack (TIA), and cerebral infarction without residual deficits; Z90.49 Acquired absence of other specified parts of digestive tract; Z90.710 Acquired absence of both cervix and uterus
CPT/HCPCS: 36415; 70450; 80048; 82040; 85025; 93005; 96374; 96375; 99284; J0780; J1200; J1885

== ENCOUNTER 2019-01-26 08:37 | Inpatient (IN) | payer BC ==
[2019-01-26] VITALS (7 sets, daily range): BP systolic 61–112; BP diastolic 51–67
[~2019-01-26] VITALS: Ht 160 cm; Wt 92.1 kg
[~2019-01-26 08:37] MED LIST changes: +HYDR25TA6 PO; +HYDR50TA13 PO; +METO10TA82 PO
--- NOTE | 2019-01-26 08:50 | NUR ---
Pt walked back to room 4 following me with a steady gait.
--- NOTE | 2019-01-26 09:00 | NUR ---
Pt stated, "I need to go pee now, so if you need a sample, can I do it now?". I responded to her saying, "yes", and handed the pt a UA cup. Pt left room 4 walking with a steady gait to the restroom.
--- NOTE | 2019-01-26 09:22 | NUR ---
PT. ARRIVES WITH C/O MARQUEZ PAIN AND INTERMITTENT PERIODS OF DISORIENTATION. PT. HAS A HX OF MIGRAINES AND CEREBRAL ANERURYSM. PT. HAS THE CP MONITOR IN PLACE. LABS OBTAINED. IV ACCESS ESTABLISHED. PT. IS RESTING WITH THE HOB ELEVATED GREATER THAN 30 DEGREES. PT. WAS GIVEN A BLANKET FOR WARMTH. SIDERAILS REMAIN UP X 2 WITH THE CALL LIGHT IN PLACE.
--- NOTE | 2019-01-26 09:23 | NUR ---
LATE ENTRY. UPON ARRIVAL TO THE ER PT. IS STATING THAT SHE IS ALWAYS ADMITTED TO THE HOSPITAL AND WANTS TO BE ADMITTED TODAY WELL.
[2019-01-26 09:33] LABS: BASOPHILS # (AUTO) 0.04 x10^3/uL (0-0.1); BASOPHILS % (AUTO) 1 % (0-1); EOSINOPHILS # (AUTO) 0.05 x10^3/uL (0-0.4); EOSINOPHILS % (AUTO) 1 % (1-7); LYMPHOCYTES # (AUTO) 2.21 x10^3/uL (1-3.4); LYMPHOCYTES % (AUTO) 37 % (22-44); MD NO; MEAN CORPUSCULAR HEMOGLOBIN 30.3 pg (27.0-34.8); MEAN CORPUSCULAR HGB CONC 33.5 g/dL (32.4-35.8); MEAN CORPUSCULAR VOLUME 90.5 fL (80-100); MEAN PLATELET VOLUME 7.8 fL (7.4-10.4); MONOCYTES # (AUTO) 0.31 x10^3/uL (0.2-0.8); MONOCYTES % (AUTO) 5 % (2-9); NEUTROPHILS # (AUTO) 3.44 x10^3/uL (1.8-6.8); NEUTROPHILS % (AUTO) 57 % (42-75); PLATELET COUNT 340 x10^3/uL (130-400); RED BLOOD COUNT 4.47 x10^6/uL (3.82-5.3); RED CELL DISTRIBUTION WIDTH 13.1 % (9.6-15.2)
[2019-01-26 09:43] LABS: INTERNATIONAL NORMALIZED RATIO 0.96 (0.93-1.1); PROTHROMBIN TIME 10.1 Seconds (9.6-11.5)
--- NOTE | 2019-01-26 09:51 | NUR ---
CT WAITING ON LAB RESULTS FOR SCAN
[2019-01-26] MEDS ORDERED: MORPHINE SULFATE 4 MG/ML, 1ML ONE (10:57)
[2019-01-26] MEDS ORDERED: MORPHINE SULFATE 4 MG/ML, 1ML IVPush ONE (11:00)
[2019-01-26] MEDS ORDERED: OMNIPAQUE 350 MG/ML, 100ML BOTTLE ONE (11:00)
--- NOTE | 2019-01-26 11:03 | NUR ---
PATIENT CALLED AND REQUESTED PAIN MED FOR HEADACHE. DR. FRANKLIN NOTIFIED. 4MG MORPHINE IVP ORDERED AND GIVEN.
--- NOTE | 2019-01-26 11:11 | NUR ---
PT. WAS MEDICATED FOR PAIN ORDERED. PT. REMAINS MONITORED AT THIS TIME.
[2019-01-26] MEDS ORDERED: MECLIZINE CHEWABLE 25 MG TAB PO ONE (12:00)
[2019-01-26] MEDS ORDERED: MECLIZINE CHEWABLE 25 MG TAB ONE (12:05)
--- NOTE | 2019-01-26 12:07 | NUR ---
PT. WAS AMBULATORY TO THE RESTROOM. PT. HAS C/O DIZZINESS. XIOMARA OBRIEN UPDATED. PLAN OF CARE DISCUSSED. PT. WAS MEDICATED ORDERED. VSS. PT. IS RESTING WITH THE HOB ELEVATED GREATER THAN 30 DEGREES. CP MONITOR IS IN PLACE.
--- NOTE | 2019-01-26 12:07 | NUR ---
LATE ENTRY: PT. HAD A STEADY GAIT WITH AMBULATION.
--- NOTE | 2019-01-26 12:29 | NUR ---
THIS STOKER ERECTOR ANSWERED CALL LIGHT. PATIENT STATED, "IF THE DOCTOR WANTS ME TO LEAVE, AT LEAST CAN I BE PAIN FREE", AND, "IF I HAVE PAIN I'M JUST GOING TO COME RIGHT BACK." DR. FRANKLIN NOTIFIED. NO MORE PAIN MEDICINE TO BE ORDERED/GIVEN. NANCY SIDDIQUI NOTIFIED.
--- NOTE | 2019-01-26 12:45 | NUR ---
REPORT TO LEONCIO CRUZ. PT. IS UP FOR DISCHARGE. PT. IS NOT WANTING TO LEAVE.
--- NOTE | 2019-01-26 13:16 | NUR ---
VERBAL AND WRITTEN INSTRUCTIONS GIVEN PT SIGNED DC PAPERS IV PULLED PT AND SO HAD NO FURTHER QUESTIONS WAS INSTRUCTED TO DRESS AND COMPUTING ARCHITECT RETURN TO GUIDE PT TO THE DC DESK PT AGREED WITH IN 5 MIN PT WAS FOUND BY A TECH GETTING UP OFF THE FLOOR WITH ASSIT FROM SO PT GOT HERSELF BACK INTO BED PT HAD FULLY DRESSED HERSELF AND REPORTS SHE BLACKED OUT WHILE GETTING ON HER SHOE PA TO THE ROOM AND PT REPORTS PAIN TO HER L HIP ERP AWARE AND PT TO BE AN ADMIT HAD NOT BEEN DCD FROM THE COMPUTER
--- NOTE | 2019-01-26 13:45 | NUR ---
ERP TO THE BS CONFIRMS ADMIT IS UNSURE WHAT HAS CAUSED PT MULTIPLE COMPLAINTS
[2019-01-26] MEDS ORDERED: GUAIFENESIN/DM 200-20MG, 10ML UDC PO PRN (14:30)
[2019-01-26] MEDS ORDERED: ONDANSETRON ODT 4 MG PO PRN (14:30)
[2019-01-26] MEDS ORDERED: BISACODYL 10 MG SUPP PR PRN (14:30)
[2019-01-26] MEDS ORDERED: POLYETHYLENE GLYCOL 17 GM PACKET PO PRN (14:30)
[2019-01-26] MEDS ORDERED: DOCUSATE 100 MG CAPSULE PO PRN (14:30)
[2019-01-26] MEDS ORDERED: hydrALAzine 20 MG/ML, 1ML IVPush PRN (14:30)
[2019-01-26] MEDS ORDERED: IBUPROFEN 600 MG TABLET PO PRN (14:30)
[2019-01-26] MEDS ORDERED: GABAPENTIN 300 MG CAPSULE PO PRN (14:30)
[2019-01-26] MEDS ORDERED: ACETAMINOPHEN 325 MG TABLET PO PRN (14:30)
[2019-01-26] MEDS ORDERED: MELO15TA24 PO (15:57)
[2019-01-26] MEDS ORDERED: ZOLP10TA5 PO (15:57)
[2019-01-26] MEDS ORDERED: DICY20TA3 PO (15:57)
[2019-01-26] MEDS ORDERED: LOSA25TA25 PO (15:57)
[2019-01-26] MEDS ORDERED: FENO145T30 PO (15:57)
[2019-01-26] MEDS ORDERED: NORT25CA78 PO (15:57)
[2019-01-26] MEDS ORDERED: BUPR150T6 PO (15:57)
[2019-01-26] MEDS ORDERED: METO25TA2 PO (15:57)
[2019-01-26 16:21] LABS: ANION GAP 6 mmol/L (5-15); CALCIUM 8.3 mg/dL (8.5-10.1); CHLORIDE 110 mmol/L (98-107)
[2019-01-26 16:31] LABS: FREE T4 (FREE THYROXINE) 0.82 ng/dL (0.76-1.46)
[2019-01-26 17:15] LABS: HEMOGLOBIN A1C 6.2 % (4.2-6.3)
[2019-01-26] MEDS: KETOROLAC 30 MG/1 ML IV PRN (17:48)
[2019-01-26] MEDS ORDERED: PEDS NS BOLUS IV.SOLN 20ML/KG IVBOLUS ONE (21:00)
[2019-01-26] MEDS ORDERED: SODIUM CHLORIDE 0.9% 1,000ML IVBOLUS ONE (21:00)
[2019-01-26] MEDS ORDERED: HYDR25PO5 PO (21:04)
[2019-01-26] MEDS ORDERED: PRAZ1POW3 PO (21:05)
[2019-01-26] MEDS: ASA/APAP/ CAFFEINE TABLET PO PRN (21:14)
[2019-01-26] MEDS ORDERED: SODIUM CHLORIDE 0.9%, 500ML IVBOLUS ONE (22:30)
[2019-01-26 23:18] LABS: MICROSCOPIC NOT IND
[2019-01-26 23:21] LABS: CULTURE INDICATED? NO
[2019-01-26 23:30] LABS: AMPHETAMINE SCREEN, URINE Negative (Negative); BARBITURATE SCREEN, URINE Positive (Negative); BENZODIAZEPINE SCREEN, URINE Positive (Negative); CANNABINOID SCREEN, URINE Negative (Negative); COCAINE SCREEN, URINE Negative (Negative); METHADONE SCREEN, URINE Negative (Negative); OPIATE SCREEN, URINE Positive (Negative)
[2019-01-27] MEDS ORDERED: NALOXONE 0.4 MG/ML, 1ML IVPush ONE (00:30)
[2019-01-27] MEDS ORDERED: SODIUM CHLORIDE 0.9% 1,000ML IVBOLUS ONE (00:30)
[2019-01-27 00:59] VITALS: BP 94/52
[2019-01-27] MEDS: ASA/APAP/ CAFFEINE TABLET PO PRN ×2 (01:05→14:58)
[2019-01-27 01:11] VITALS: BP 102/62
[2019-01-27 05:38] VITALS: BP 90/56
[2019-01-27 05:44] LABS: CHOL/HDL RATIO 4.9; LDL/HDL RATIO 2.8 (0.5-3.0)
[2019-01-27 07:27] VITALS: BP 101/68
[2019-01-27] MEDS: ASPIRIN 81 MG TABLET CHEW PO/NG SCH (08:52)
[2019-01-27] MEDS: KETOROLAC 30 MG/1 ML IV PRN ×2 (08:53→18:30)
[2019-01-27 14:00] VITALS: BP 111/75
[2019-01-27] MEDS ORDERED: PANT40TA5 PO (14:47)
[2019-01-27] MEDS ORDERED: VENL150C6 PO (14:52)
[2019-01-27 19:14] VITALS: BP 117/76
[2019-01-28 00:48] VITALS: BP 116/80
[2019-01-28] MEDS: KETOROLAC 30 MG/1 ML IV PRN (01:48)
[2019-01-28] MEDS: ASA/APAP/ CAFFEINE TABLET PO PRN (07:15)
[2019-01-28 07:18] VITALS: BP 119/81
[2019-01-28] MEDS: ASPIRIN 81 MG TABLET CHEW PO/NG SCH (07:54)
[2019-01-28 12:28] VITALS: BP 131/90
[2019-01-28] MEDS ORDERED: ASPI-515 PO/NG (13:27)
[2019-01-28] MEDS ORDERED: ATOR40TA78 PO (13:28)
== END 2019-01-28 19:00 | disposition home or self-care (01) | DRG 103 ==
LOC: ED 10:22 → OBSVTOIN 13:45 → EDIP 13:45 → INTOOBSV 13:45 → 3NW 15:41 → 4EST 20:24
PROVIDERS: ADMIT Internal Medicine; ATTEND Internal Medicine
DX: G43.919 Migraine, unspecified, intractable, without status migrainosus (principal); G45.9 Transient cerebral ischemic attack, unspecified; F32.9 Major depressive disorder, single episode, unspecified; F43.10 Post-traumatic stress disorder, unspecified; I10 Essential (primary) hypertension; R47.1 Dysarthria and anarthria; K22.70 Barrett's esophagus without dysplasia; K21.9 Gastro-esophageal reflux disease without esophagitis; K58.9 Irritable bowel syndrome, unspecified; Z87.11 Personal history of peptic ulcer disease; Z90.49 Acquired absence of other specified parts of digestive tract; Z90.710 Acquired absence of both cervix and uterus; Z98.1 Arthrodesis status; Z98.891 History of uterine scar from previous surgery; Z88.6 Allergy status to analgesic agent; Z91.013 Allergy to seafood; Z88.8 Allergy status to other drugs, medicaments and biological substances; Z91.018 Allergy to other foods; W18.39XA Other fall on same level, initial encounter; Y93.89 Activity, other specified; Y92.89 Other specified places as the place of occurrence of the external cause
CPT/HCPCS: 36415; 36600; 51702; 70450; 70496; 70544; 70551; 80047; 80048; 80061; 80307; 81003; 82533; 82803; 83036; 83735; 84145; 84439; 84443; 85025; 85610; 85730; 93005; 93306; 93880; 96374; 96375; 99291; G0378; J1885; J2310; Q9967; 92523-GN; J7030; J7040

== ENCOUNTER → 2019-12-27 | Outpatient (CLI) | payer BC, OTHER ==
[~2019-12-27] MED LIST changes: +ASPI-515 PO/NG; +ATOR40TA78 PO; +BUPR150T6 PO; +DICY20TA3 PO; +FENO145T19 PO; -FENO145T30 PO; +FLUO20CA23 PO; -FLUO20CA8 PO; +HYDR25PO5 PO; -HYDR50TA13 PO; +HYDR50TA99 PO; +LOSA25TA25 PO; +METO25TA2 PO; +MONT10TA11 PO; -MONT10TA9 PO; +NORT25CA78 PO; +PRAZ1POW3 PO; +VENL150C6 PO; +ZOLP10TA5 PO
== END | disposition home or self-care (01) ==
LOC: CFH 09:50
PROVIDERS: ATTEND Neurological Surgery
DX: I67.1 Cerebral aneurysm, nonruptured (principal)
CPT/HCPCS: 70544

== ENCOUNTER 2020-11-06 12:39 | Emergency (ER) | payer BC, OTHER ==
[~2020-11-06] VITALS: Ht 160 cm; Wt 81.3 kg
[~2020-11-06 12:39] MED LIST changes: -BUPR150T6 PO; +BUPR150T7 PO; -MONT10TA11 PO; +MONT10TA96 PO; -PANT40TA5 PO; +PANT40TA6 PO
--- NOTE | 2020-11-06 12:48 | NUR ---
parlor maid: EKG done in triage
--- NOTE | 2020-11-06 13:11 | NUR ---
ERP AT BS. PT REPORTS SHE WOKE UP WITH N/V AND SOB.
--- NOTE | 2020-11-06 13:15 | NUR ---
ERP WAS IN TO SEE PT. NO UNILATERAL DEFICITS OR STROKE SYMPTOMS NOTED.
--- NOTE | 2020-11-06 13:35 | NUR ---
PT AMBULATED TO BR WITHOUT DIFFICULTY.
[2020-11-06 13:43] LABS: MICROSCOPIC NOT IND
[2020-11-06 13:55] LABS: BASOPHILS % (AUTO) 1 % (0-1); EOSINOPHILS % (AUTO) 2 % (1-7); LYMPHOCYTES % (AUTO) 42 % (22-44); MEAN CORPUSCULAR HEMOGLOBIN 30.5 pg (27.0-34.8); MEAN CORPUSCULAR HGB CONC 34.1 g/dL (32.4-35.8); MEAN PLATELET VOLUME 7.8 fL (7.4-10.4); MONOCYTES % (AUTO) 6 % (2-9); NEUTROPHILS % (AUTO) 49 % (42-75); PLATELET COUNT 389 x10^3/uL (130-400); RED BLOOD COUNT 4.65 x10^6/uL (3.82-5.3); RED CELL DISTRIBUTION WIDTH 13.1 % (9.6-15.2)
[2020-11-06 13:56] LABS: ALBUMIN 4.1 g/dL (3.4-5.0); ANION GAP 8 mmol/L (5-15); CHLORIDE 108 mmol/L (98-107)
[2020-11-06 13:59] LABS: ALANINE AMINOTRANSFERASE 40 U/L (12-78); ALKALINE PHOSPHATASE 105 U/L (45-117); BILIRUBIN,TOTAL 0.7 mg/dL (0.2-1.0); CREATININE 0.71 mg/dL (0.55-1.02); TOTAL PROTEIN 7.8 g/dL (6.4-8.2)
[2020-11-06 14:05] LABS: MD NO
[2020-11-06 14:30] VITALS: BP 127/86
--- NOTE | 2020-11-06 14:54 | NUR ---
D/C INSTRUCTIONS & F/U APPT RV'WD WITH PT, SHE VERBALIZES UNDERSTANDING. INSTRUCTED TO RETURN TO ED FOR ANY WORSENING OR CONCERNING SYMPTOMS. AMBULATED OUT OF ED WITHOUT DIFFICULTY.
== END 2020-11-06 14:57 | disposition home or self-care (01) ==
LOC: ED 14:51
DX: R11.2 Nausea with vomiting, unspecified (principal); R42 Dizziness and giddiness; R20.0 Anesthesia of skin; R29.810 Facial weakness; I10 Essential (primary) hypertension; G43.909 Migraine, unspecified, not intractable, without status migrainosus; Z86.73 Personal history of transient ischemic attack (TIA), and cerebral infarction without residual deficits; Z90.49 Acquired absence of other specified parts of digestive tract; Z90.710 Acquired absence of both cervix and uterus
CPT/HCPCS: 36415; 80053; 81003; 85025; 93005; 99284